=== PATIENT | female | born 1970 | race Caucasian/White ===

== ENCOUNTER 2018-10-05 07:08 | Emergency (ER) | payer OTHER ==
[~2018-10-05] VITALS: Wt 54.5 kg
--- NOTE | 2018-10-05 07:40 | ERD ---
ER Documentation Chief Complaint Chief Complaint "ABSCESS ON R. LEG" HPI 48-year-old female with history of IV drug use presents with complaint of abscess in her right leg. States that spent for last 2 days. States she is never had an abscess before. Patient denies any fevers, chills, acute pain. ROS All systems reviewed and are negative except as per history of present illness. Medications Home Meds Active Scripts Cephalexin* (Keflex*) 500 Mg Capsule, 500 MG PO QID for 7 Days, CAP Prov:DAVON JANSEN 10/05/18 Sulfamethoxazole/Trimethoprim* (Bactrim Ds* Tablet) 1 Each Tablet, 1 TAB PO BID, #14 TAB Prov:DAVON JANSEN 10/05/18 Allergies Allergies: Coded Allergies: Penicillins (Verified Allergy, Unknown, HIVES, 10/05/18) PMhx/Soc History of Surgery: Yes (METAL IN BOTH FEET/BACK SURGERY) Hx Miscellaneous Medical Probl: Yes (HEP C) Hx Alcohol Use: No Hx Substance Use: Yes (HEROIN) Hx Tobacco Use: Yes Smoking Status: Current every day smoker FmHx Family History: No diabetes, No coronary disease, No other Physical Exam Vitals Vital Signs Date Temp Pulse Resp B/P (MAP) Pulse Ox O2 O2 Flow FiO2 Time Delivery Rate 10/05/18 97.6 68 20 124/75 97 07:13 (91) Physical Exam Const: No acute distress Head: Atraumatic Eyes: Normal Conjunctiva ENT: Normal External Ears, Nose and Mouth. Neck: Full range of motion. No meningismus. Resp: Clear to auscultation bilaterally Cardio: Regular rate and rhythm, no murmurs Abd: Soft, non tender, non distended. Normal bowel sounds Skin: 3 cm fluctuant erythematous mass noted on the lateral aspect of right hip. Tender to palpation with no lymphatic streaking noted. Back: No midline or flank tenderness Ext: No cyanosis, or edema Neur: Awake and alert Psych: Normal Mood and Affect Results 24 hrs Current Medications Medications Dose Sig/Ada Start Time Status Last (Trade) Ordered Route PRN Stop Time Admin Dose Reason Admin Lidocaine 20 ml ONCE ONCE 10/05/18 DC (Xylocaine SC 08:00 10/05/18 1% (Mdv) 20 08:01 ml) Bacitracin 1 applic ONCE ONCE 10/05/18 DC (Bacitracin TOP 08:00 10/05/18 Oint (Ud)) 08:01 Procedures/MDM Abscess Incision and Drainage with irrigation by me: Location: Lateral left buttock. Anesthesia: Local 1% Lidocaine Technique: Irrigated. Disrupted loculations w/ instrumentation Packing: None Complications: Neurovascularly intact post procedure 48 hour wound check. Scar minimization instructions given. MDM: Abscess was incised and drained by staining under direct supervision of me. Patient tolerated procedure well without any complications. Patient was given Rx for Keflex as well as Bactrim and advised to return to ER in 48 hours for wound check and packing removal. This time of low suspicion for perirectal abscess, sepsis, bacteremia, osteomyelitis, or any other emergent condition. Patient was advised as long as she contains her IV drug use she would risk for recurrent infection such as this. At this time, patient is stable for discharge and outpatient management. I have instructed the patient to follow-up with his/her primary care physician in 1-2 days. I have discussed with the patient the possibility of needing to see a specialist for further workup and imaging studies if symptoms persist. I have instructed the patient to promptly return to the ER for any new or worsening symptoms including but not limited to increased pain, fever, nausea, vomiting, weakness or LOC. The patient and/or family expressed understanding of and agreement with this plan. All questions were answered. Home care instructions were provided. DISCLAIMER: Inadvertent spelling and grammatical errors are likely due to EHR/dictation sof tware use and do not reflect on the overall quality of patient care. Also, please note that the electronic time recorded on this note does not necessarily reflect the actual time of the patient encounter. Departure Diagnosis: Primary Impression: Abscess Condition: Stable DAVON JANSEN Oct 05, 2018 07:40
[2018-10-05] MEDS ORDERED: LIDOCAINE 1% (MDV) 20 ML INJ SC ONE (08:00)
[2018-10-05] MEDS ORDERED: BACITRACIN 0.9 GM OINT TOP ONE (08:00)
[2018-10-05] MEDS ORDERED: SULF1TAB31 PO (08:29)
[2018-10-05] MEDS ORDERED: CEPH-443 PO (08:29)
== END 2018-10-05 09:05 | disposition home or self-care (01) ==
LOC: FTE 07:08
DX: L02.31 Cutaneous abscess of buttock (principal); F17.210 Nicotine dependence, cigarettes, uncomplicated
CPT/HCPCS: 10060; Z7502; Z7610

== ENCOUNTER → 2018-10-14 | Emergency (ER) | payer SELFPAY ==
[~2018-10-14] VITALS: Ht 165.1 cm; Wt 62.0 kg
[~2018-10-14] MED LIST: CEPH-443 PO; SULF1TAB31 PO
[2018-10-14 23:53] VITALS: BP 130/81; PULSE 112; RESP 20; Ht 165.1 cm; Wt 62.0 kg
== END | disposition left against medical advice (07) ==
LOC: FTE 23:46
DX: Z53.21 Procedure and treatment not carried out due to patient leaving prior to being seen by health care provider (principal)